=== PATIENT | female | born 1990 | race Hispanic/Latino ===

== ENCOUNTER 2018-11-20 11:33 | Emergency (ER) | payer SELFPAY ==
[2018-11-20] MEDS ORDERED: LEVALBUTEROL 1.25 MG/3 ML NEB ONE (13:14)
--- NOTE | 2018-11-20 14:55 | RAD REPORT ---
EXAM DESCRIPTION: Fatou Pa And Lat (2 Views)11/20/2018 1:46 pm CLINICAL HISTORY: Cough COMPARISON: None FINDINGS: 9 millimeter nodular opacity is present within the mid right lung. The remainder of the lungs appear clear of acute infiltrate. The heart is normal size IMPRESSION: 9 millimeter nodular opacity within the mid right lung. CT chest recommended
--- NOTE | 2018-11-20 15:59 | RAD REPORT ---
EXAM DESCRIPTION: CT - Thorax Wo Con - 11/20/2018 3:51 pm CLINICAL HISTORY: Cough, body aches, flu-like symptoms COMPARISON: Chest exam same date. TECHNIQUE: Axial 5 mm thick images of the chest were obtained without IV contrast. All CT scans are performed using dose optimization technique as appropriate and may include automated exposure control or mA/KV adjustment according to patient size. FINDINGS: Patchy nodular alveolar opacities are present in the inferior aspect of the right upper lo be adjacent to the minor fissure. More prominent alveolar opacities are present in the posterior mid and lower aspect of the right lower lobe. No air bronchograms are present. Trace amount of interstiti al and alveolar opacification present in the superior segment left lower lobe. There is minimal opaci ties present in the posterior base of the left lower lobe. No pleural thickening or pleural effusion. No pneumothorax. No abnormal mediastinal or hilar masses or lymphadenopathy seen. No gross aortic or pulmonary artery finding suspected. Assessment is limited in the absence of IV contrast. No cardiomegaly. No pericard ial effusion. No chest wall mass or abnormal axillary lymphadenopathy. IMPRESSION: Pneumonia changes are present in the right lower lobe and to a lesser degree in the infe rior aspect right upper lobe. Trace amounts of pneumonia change in the left lung field. No suspicious mass or nodule identified. The chest film finding is believed to be part of pneumonia.
--- NOTE | 2018-11-20 16:16 | ER ---
Nurse's Notes [facility] Name: Evy Madrid Age: 28 yrs Sex: Female : 1990 Arrival Date: 11/20/2018 Time: 11:34 Bed 26 Private MD: Diagnosis: Pneumonia Presentation: 11/20 11:57 Presenting complaint: Patient states: Sorethroat, cough and fever, has been taking sg Ampicillin at home so the fever has been controlled but today the bodyaches and sorethroat have been getting worse, denies N/V/D/Fever Qatari Speaking onlyl, the [employer] service used. Transition of care: patient was not received from another setting of care. Onset of symptoms was November 20, 2018. Risk Assessment: Do you want to hurt yourself or someone else? Patient reports no desire to harm self or others. Initial Sepsis Screen: Does the patient meet any 2 criteria? No. Patient's initial sepsis screen is negative. Does the patient have a suspected source of infection? No. Patient's initial sepsis screen is negative. Care prior to arrival: None. 11:57 Method Of Arrival: Ambulatory 11:57 Acuity: LILLIAN 4 sg TSO: 13:10 LMP 10/2018 ca1 Historical: - Allergies: 11:55 No Known Allergies; sg - Home Meds: 11:55 None [Active]; sg - PMHx: 11:55 None; sg - PSHx: 11:55 None; sg - Immunization history:: Adult Immunizations up to date. - Social history:: Smoking status: Patient/guardian denies using tobacco. - Ebola Screening: : Patient negative for fever greater than or equal to 101.5 degrees Fahrenheit, and additional compatible Ebola Virus Disease symptoms Patient denies exposure to infectious person Patient denies travel to an Ebola-affected area in the 21 days before illness onset No symptoms or risks identified at this time. Screenin:10 Abuse screen: Denies threats or abuse. Denies injuries from another. ca1 13:10 Nutritional screening: No deficits noted. Tuberculosis screening: No symptoms or risk ca1 factors identified. Fall Risk None identified. Assessment: 13:10 General: Appears in no apparent distress. Behavior is calm, cooperative, appropriate ca1 for age. Pain: Complains of pain in diaphragm Pain does not radiate. Pain at worst was 8 out of 10 on a pain scale. Pain began when coughing. Neuro: Level of Consciousness is awake, alert, obeys commands, Oriented to person, place, time, situation. Cardiovascular: Heart tones S1 S2 present Capillary refill < 3 seconds Patient's skin is warm and dry. Respiratory: Airway is patent Respiratory effort is even, unlabored, Respiratory pattern is regular, symmetrical, Breath sounds are clear bilaterally. Respiratory: Reports cough that is non-productive, pain with cough. GI: No signs and/or symptoms were reported involving the gastrointestinal system. : No signs and/or symptoms were reported regarding the genitourinary system. EENT: Throat is pink Reports nasal congestion. Derm: Skin is intact, is healthy with good turgor, Skin is pink, warm \T\ dry. Musculoskeletal: Circulation, motion, and sensation intact. Capillary refill < 3 seconds. 14:00 Reassessment: Patient appears in no apparent distress at this time. Patient and/or ca1 family updated on plan of care and expected duration. Pain level reassessed. Patient is alert, oriented x 3, equal unlabored respirations, skin warm/dry/pink. 15:00 Reassessment: Patient appears in no apparent distress at this time. Patient is alert, ca1 oriented x 3, equal unlabored respirations, skin warm/dry/pink. MIGUEL James at bedside. 16:00 Reassessment: Patient appears in no apparent distress at this time. Patient and/or ca1 family updated on plan of care and expected duration. Pain level reassessed. Patient is alert, oriented x 3, equal unlabored respirations, skin warm/dry/pink. 16:30 Reassessment: Patient appears in no apparent distress at this time. Patient is alert, ca1 oriented x 3, equal unlabored respirations, skin warm/dry/pink. kept pt for observation after administration of Rocephin. Vital Signs: 11:53 BP 124 / 72; Pulse 87; Resp 19; Temp 98.8; Pulse Ox 100% on R/A; sg 13:04 BP 114 / 54; Pulse 59; Resp 21; Pulse Ox 100% on R/A; ca1 14:00 BP 106 / 88; Pulse 80; Resp 19; Pulse Ox 99% on R/A; ca1 15:00 BP 104 / 73; Pulse 82; Resp 19; Pulse Ox 100% on R/A; ca1 16:00 BP 117 / 69; Pulse 69; Resp 19; Pulse Ox 100% on R/A; ca1 16:46 BP 103 / 62; Pulse 73; Resp 19; Pulse Ox 100% on R/A; ca1 ED Course: 11:34 Patient arrived in ED. as 11:55 Arm band placed on. sg 11:58 Triage completed. sg 12:33 Nick Mclaughlin PA is PHCP. jmm 12:33 Saud Azevedo MD is Attending Physician. jmm 13:10 Patient has correct armband on for positive identification. Placed in gown. Bed in low ca1 position. Call light in reach. Side rails up X 1. Pulse ox on. NIBP on. Warm blanket given. 13:46 Chest Pa And Lat (2 Views) XRAY In Process Unspecified. EDMS 14:33 Lynn Sumner, JOSSELINE is Primary Nurse. ca1 15:[address] via wheelchair. jj2 15:51 CT Chest Wo Con In Process Unspecified. EDMS 15:51 CT completed. Patient moved back from CT. 2 16:46 No provider procedures requiring assistance completed. Patient did not have IV access ca1 during this emergency room visit. Administered Medications: 13:08 Drug: Xopenex (3) 1.25 mg Route: Inhalation; ca1 16:22 Drug: Rocephin (cefTRIAXone) 1 grams Route: IM; Site: right gluteus; ca1 16:44 Follow up: Response: No adverse reaction ca1 Outcome: 16:15 Discharge ordered by . [facility] 16:46 Discharged to home ambulatory. ca1 16:46 Condition: stable 16:46 Discharge instructions given to patient, family, Instructed on discharge instructions, follow up and referral plans. medication usage, Demonstrated understanding of instructions, follow-up care, medications, Prescriptions given X 2. 16:58 Patient left the ED. ca1 Signatures: Dispatcher [employer] EDMS Oren Zambrano, RN RN Nick Mclaughlin PA PA jmm Jaramillo, Justin jj2 Martinez, Amelia as McGuire, [facility] Lynn Sumner, JOSSELINE RN ca1
--- NOTE | 2018-11-20 16:16 | EDPHYS ---
Physician Documentation [facility] Name: Evy Madrid Age: 28 yrs Sex: Female : 1990 Arrival Date: 11/20/2018 Time: 11:34 Bed 26 Private MD: ED Physician Saud Azevedo HPI: 11/20 12:42 This 28 yrs old Female presents to ER via Ambulatory with complaints of Cough, jmm Sore Throat. 12:42 The patient or guardian reports cough. Onset: The symptoms/episode began/occurred jmm gradually, 12 day(s) ago. Associated signs and symptoms: Pertinent positives: fever. This is a 28 year old female with no chronic medical conditions that presents to the ED with complaints of cough, shortness of breath beginning 12 days ago. . 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 - Social history:: Smoking status: Patient/guardian denies using tobacco. - Ebola Screening: : Patient negative for fever greater than or equal to 101.5 degrees Fahrenheit, and additional compatible Ebola Virus Disease symptoms Patient denies exposure to infectious person Patient denies travel to an Ebola-affected area in the 21 days before illness onset No symptoms or risks identified at this time. ROS: 12:42 Eyes: Negative for injury, pain, redness, and discharge, Cardiovascular: Negative for jmm chest pain, palpitations, and edema. 12:42 Constitutional: Positive for chills, fever. 12:42 Respiratory: Positive for wheezing. 12:42 All other systems are negative. Exam: 12:42 Constitutional: This is a well developed, well nourished patient who is awake, alert, jmm and in no acute distress. Head/Face: atraumatic. Eyes: EOMI, no conjunctival erythema appreciated ENT: Moist Mucus Membranes Neck: Trachea midline, Supple Chest/axilla: Normal chest wall appearance and motion. 12:42 Abdomen/GI: Non distended, soft Back: Normal ROM Skin: General appearance color normal MS/ Extremity: Moves all extremities, no obvious deformities appreciated, no edema noted to the lower extremities Neuro: Awake and alert, normal gait Psych: Behavior is normal, Mood is normal, Patient is cooperative and pleasant 12:42 Cardiovascular: Rate: normal, Rhythm: regular. 12:42 Respiratory: the patient does not display signs of respiratory distress, Respirations: normal, Breath sounds: wheezing: that is mild, is heard in the left posterior lower lobe and right posterior lower lobe. 12:42 Abdomen/GI: Vital Signs: 11:53 BP 124 / 72; Pulse 87; Resp 19; Temp 98.8; Pulse Ox 100% on R/A; sg 13:04 BP 114 / 54; Pulse 59; Resp 21; Pulse Ox 100% on R/A; ca1 14:00 BP 106 / 88; Pulse 80; Resp 19; Pulse Ox 99% on R/A; ca1 15:00 BP 104 / 73; Pulse 82; Resp 19; Pulse Ox 100% on R/A; ca1 16:00 BP 117 / 69; Pulse 69; Resp 19; Pulse Ox 100% on R/A; ca1 16:46 BP 103 / 62; Pulse 73; Resp 19; Pulse Ox 100% on R/A; ca1 MDM: 12:42 Patient medically screened. [facility] 16:13 Data reviewed: vital signs, nurses notes. Counseling: I had a detailed discussion with tevin the patient and/or guardian regarding: the historical points, exam findings, and any diagnostic results supporting the discharge/admit diagnosis, lab results, radiology results, the need for outpatient follow up, to return to the emergency department if symptoms worsen or persist or if there are any questions or concerns that arise at home. 16:13 Data interpreted: Pulse oximetry: on room air is 100 %. Interpretation: normal. ED [facility] course: Patient is alert and non toxic in appearance in the ED. I discussed with the patient the need for follow up with pcp. patient is given strict return precautions. patient understood and agrees with the plan of care. . 11/20 11:59 Order name: Flu; Complete Time: 12:46 11/20 11:59 Order name: Strep; Complete Time: 12:42 11/20 12:33 Order name: Throat Culture [facility] 11/20 12:46 Order name: Chest Pa And Lat (2 Views) XRAY; Complete Time: 14:59 [facility] 11/20 15:52 Order name: Urine Dipstick--Ancillary (enter results) 11/20 15:52 Order name: Urine --Ancillary (enter results) bd 11/20 15:00 Order name: CT Chest Wo Con; Complete Time: 16:01 [facility] 11/20 15:41 Order name: Urine Dipstick-Ancillary (obtain specimen); Complete Time: 15:53 bd 11/20 15:41 Order name: Urine Test (obtain specimen); Complete Time: 15:53 bd Administered Medications: 13:08 Drug: Xopenex (3) 1.25 mg Route: Inhalation; ca1 16:22 Drug: Rocephin (cefTRIAXone) 1 grams Route: IM; Site: right gluteus; ca1 16:44 Follow up: Response: No adverse reaction ca1 Disposition: 11/20/18 16:15 Discharged to Home. Impression: Pneumonia. - Condition is Stable. - Discharge Instructions: Community-Acquired Pneumonia, Adult. - Prescriptions for Zithromax Z- Ray 250 mg Oral Tablet - take 1 tablet by ORAL route as directed for 5 days Day 1 - take two (2) tablets one time. Day 2, 3, 4 , 5 take one (1) tablet once daily.; 6 tablet. Albuterol Sulfate 90 mcg/actuation - inhale 1-2 puff by INHALATION route every 4-6 hours; 1 Inhaler. - Medication Reconciliation Form, Thank You Letter, Antibiotic Education, Prescription Opioid Use form. - Follow up: Private Physician; When: 2 - 3 days; Reason: Recheck today's complaints, Continuance of care, Re-evaluation by your physician. Addendum: 11/21/2018 19:01 Co-signature as Attending Physician, Saud Azevedo MD I agree with the assessment and k dr plan of care. Signatures: Dispatcher [employer] EDMS Cynthia Lipscomb Steven, RN RN sg Rittger, Kevin, MD MD kdr Mickail, Joel, PA PA [facility] Lynn Sumner RN RN ca1 Corrections: (The following items were deleted from the chart) 11/20 16:58 16:15 11/20/2018 16:15 Discharged to Home. Impression: Pneumonia. Condition is Stable. ca1 Forms are Medication Reconciliation Form, Thank You Letter, Antibiotic Education, Prescription Opioid Use. Follow up: Private Physician; When: 2 - 3 days; Reason: Recheck today's complaints, Continuance of care, Re-evaluation by your physician. tevin
[2018-11-20] MEDS ORDERED: LIDOCAINE 1% MPF 2 ML AMPULE ONE (16:36)
[2018-11-20] MEDS ORDERED: CEFTRIAXONE 1000 MG/VIAL ONE (16:36)
[2018-11-20 19:36] LABS: Urine Blood TRACE (NEG); Urine Glucose NEGATIVE (NEG); Urine Protein NEGATIVE (NEG); Urine Specific Gravity 1.015 (1.005-1.030)
== END 2018-11-20 16:58 | disposition home or self-care (01) ==
LOC: ER 11:33
DX: J18.9 Pneumonia, unspecified organism (principal)
CPT/HCPCS: 71046; 71250; 81003; 81025; 87070; 87081; 87804; 96372; 99285; J2001